=== PATIENT | female | born 2000 | race Caucasian/White ===

== ENCOUNTER 2024-05-12 09:22 | Emergency (ER) | payer MEDICAID, SELFPAY ==
[2024-05-12 09:46] VITALS: BP 165/92; PULSE 54; RESP 17; TEMP 36.4; O2SAT 98; BMI 35.5
[2024-05-12] MEDS: ONDANSETRON ODT 4 MG TABRAP PO (10:21)
[2024-05-12 10:33] LABS: Collection Type, Urine Clean Catch
[2024-05-12 10:39] LABS: Basophils % (Auto) 0 % (0-2.5); Eosinophils % (Auto) 0 % (0-10); Hematocrit 44.5 % (36.0-46.0); Hemoglobin 15.5 g/dL (12.0-16.0); Immature Granulocytes % (Auto) 0 % (0-0); Immature Granulocytes Auto 0.05 Thou/mm3 (0.00-0.00); Lymphocytes # (Auto) 1.1 Thou/mm3 (1.0-4.8); Lymphocytes % (Auto) 7 % (10-50); Mean Corpuscular HGB Conc 34.8 g/dl (31.0-37.0); Mean Corpuscular Hemoglobin 28.5 pg (25.0-35.0); Mean Corpuscular Volume 82 fL (80-100); Monocytes # (Auto) 0.6 Thou/mm3 (0.0-0.8); Monocytes % (Auto) 3 % (0-12); Neutrophils # (Auto) 14.6 Thou/mm3 (1.8-7.7); Neutrophils % (Auto) 90 % (37-80); Nucleated Red Blood Cell % 0 /100 WBC (0); Platelet Count 349 Thou/mm3 (140-440); Red Blood Count 5.43 Miln/mm3 (4.00-5.20); White Blood Count 16.3 Thou/mm3 (3.6-11.0)
[2024-05-12 10:57] LABS: HCG Qualitative,Urine Negative
[2024-05-12 10:59] LABS: Alanine Aminotransferase 29 U/L (10-49); Albumin, Serum 4.8 gm/dL (3.5-5.0); Albumin/Globulin Ratio 1.5 (1.2-2.2); Alkaline Phosphatase 122 U/L (46-116); Anion Gap 9 (7-16); Aspartate Amino Transferase 20 U/L (0-34); BUN/Creatinine Ratio 15 Ratio (12-20); Bilirubin,Total 0.6 mg/dL (0.3-1.2); Blood Urea Nitrogen 12 mg/dL (9-23); Calcium 10.3 mg/dL (8.3-10.6); Calcium (Corrected) 10.3 mg/dL (8.5-10.1); Carbon Dioxide 24.2 mMol/L (20.0-31.0); Chloride 108 mMol/L (98-107); Creatinine (Component) 0.8 mg/dL (0.6-1.3); Estimated Creatinine Clearance 120.5 mL/min (>60); Globulin 3.2 gm/dL (2.3-3.5); Glucose 154 mg/dL (74-106); Lipase 29 U/L (12-53); Osmolality,Calculated 283 (275-295); Potassium 4.4 mMol/L (3.4-5.1); Sodium 141 mMol/L (136-145); eGFR > 60 See Note
[2024-05-12 11:00] LABS: Bilirubin,Urine Negative (Negative); Blood,Urine Negative (Negative); Clarity,Urine Clear (Clear/Hazy); Color,Urine Yellow (Lt Yel-Yel); Culture Indicated,Urine Not Indicated; Glucose, Urine Negative (Negative); Ketones,Urine 3+ (Negative); Leukocyte Esterase,Urine Negative (Negative); Nitrite,Urine Negative (Negative); Protein,Urine 1+ (Neg - Trace); RBC,Urine < 1 /hpf (0-3); Specific Gravity,Urine 1.033 (1.001-1.035); Squamous Epithelial Cell,Urine 3 /hpf (0-5); Urobilinogen,Urine Negative mg/dL (0.0-1.0); WBC,Urine 1 /hpf (0-5)
--- NOTE | 2024-05-12 11:02 | XR_ITS ---
Examination: CT abdomen with intravenous contrast CT pelvis with intravenous contrast 2-D coronal reconstructions 2-D sagittal reconstructions Date and time of exam:May 12, 2024 1155 hrs. Indications: Onset left-sided abdominal pain beginning 2:00 AM this morning. CTDI: vol (mGy) 11.9 DLP: (mGycm) 636 Technique: Multiple axial sections of the abdomen and pelvis have been obtained. 64 slice high-resolution scanner used. 3 mm axial sections have been obtained, post intravenous injection 60 cc [id number] 2-D sagittal, coronal reconstructions obtained. Low dose protocols were performed. One or more of the following dose reduction techniques were used; automated exposure control, adjustment of the mA and/or KV according to patient size, use of iterative reconstruction technique. Findings: No focal liver or splenic lesions Distended gallbladder No pancreatic mass or peripancreatic edema No renal or ureteral calculi, no hydronephrosis 10 mm fat-containing umbilical hernia Normal appendix No bowel obstruction No diverticulitis Anteverted uterus The entire colon shows mild wall thickening and hyperemia No adnexal mass Urinary bladder intact Impression: Distended gallbladder, consider gallbladder sonography follow-up No renal or ureteral calculi, no hydronephrosis Normal appendix No bowel obstruction diverticulitis or free air Mild diffuse nonspecific colitis pattern
[2024-05-12] MEDS: SODIUM CHLORIDE 0.9% 1000 ML 1,000 ML 999 ML IV (12:37)
[2024-05-12] MEDS: METOCLOPRAMIDE INJ 5 MG/ML VIAL 2 ML 10 MG IVP (12:37)
[2024-05-12 13:06] VITALS: BP 135/80; PULSE 69; RESP 16; TEMP 37.2; O2SAT 98
--- NOTE | 2024-05-12 13:13 | PD.EDABDPN ---
ED Abdominal Pain RME/HPI General Chief Complaint: Abdominal Pain Stated complaint: STOMACH PAIN Time seen by provider: 05/12/24 09:30 Arrival date/time: 05/12/24 09:22 24-year-old female presents the emergency department complains of nausea vomiting and diarrhea which began today patient reports no chest pain or shortness of breath Limitations: no limitations Related Data Previous Rx's ?Medication ?Instructions ?Recorded ibuprofen 600 mg tablet 600 mg PO Q6H #30 tabs 05/12/24 loperamide 2 mg capsule (Imodium 2 mg PO Q6H PRN loose stool #14 05/12/24 A-D) caps ondansetron 4 mg disintegrating 4 mg PO Q8H PRN nausea and 05/12/24 tablet vomiting #10 tabs Allergies Allergy/AdvReac Type Severity Reaction Status Date / Time Penicillins Allergy Hives Verified 05/12/24 09:25 Review of Systems Review of Systems Systems Reviewed: All systems reviewed, normal except as documented Constitutional Constitutional: Reports system reviewed and no additional complaints, except as documented, Denies fever(s) and Denies headache(s) Eyes Eyes: Reports system reviewed and no additional complaints, except as documented and Denies blurry vision ENT Ears, Nose, Mouth, and Throat: Reports system reviewed and no additional complaints, except as documented, Denies headache(s), Denies nasal congestion and Denies nasal discharge Cardiovascular Cardiovascular: Reports system reviewed and no additional complaints, except as documented, Denies chest pain and Denies dyspnea Respiratory Respiratory: Reports system reviewed and no additional complaints, except as documented, Denies chest congestion, Denies cough and Denies dyspnea Gastrointestinal Gastrointestinal: Reports system reviewed and no additional complaints, except as documented, Reports abdominal pain, Reports loose stools, Reports nausea and Reports vomiting Integumentary/Breasts Skin/Breast: Reports system reviewed and no additional complaints, except as documented and Denies rash Neurologic Neurologic: Reports system reviewed and no additional complaints, except as documented, Reports as per HPI and Denies headache(s) Past Medical History Past Medical History NEUROLOGIC: Negative Neurological Disorders CARDIAC: Negative Cardiac Disorders ED Exam General Limitations: Present no limitations General appearance: Present alert and in no apparent distress Head Head exam: Present atraumatic, normocephalic and normal inspection Eye Eye exam: Present normal appearance, PERRL and EOMI; Absent conjunctival injection ENT ENT exam: Present normal exam, normal oropharynx and mucous membranes moist Neck Neck exam: Present normal inspection, full ROM and trachea midline Chest Chest inspection: Present normal inspection and symmetric chest wall rise Respiratory Respiratory exam: Present normal lung sounds bilaterally; Absent respiratory distress Cardiovascular Cardiovascular exam: Present regular rate, normal rhythm and normal heart sounds Abdominal Exam Abdominal exam: Present soft and normal bowel sounds; Absent distention, tenderness, guarding, rebound, rigidity, Fortune's sign, Rovsing's sign or tenderness at McBurney's Point Abdominal tenderness: Present epigastrium, mild and moderate; Absent RUQ or RLQ Extremities Exam Extremities exam: Present normal inspection and full ROM Back Exam Back exam: Present normal inspection and full ROM Neurological Exam Neurological exam: Present alert, oriented X3 and CN II-XII intact Psychiatric Psychiatric exam: Present normal affect and normal mood Skin Skin exam: Present warm, dry, intact and normal color Course Quality Measures none Orders Category Date Time Status CT Screening NOW Care 05/12/24 11:03 Completed Insert IV NOW Care 05/12/24 11:[address] abdomen pelvis w con Stat Exams 05/12/24 11:02 Completed CBC Stat Lab 05/12/24 10:24 Completed Comprehensive Metabolic Panel Stat Lab 05/12/24 10:24 Completed HCG Qualitative,Urine Stat Lab 05/12/24 10:13 Completed Lipase Stat Lab 05/12/24 10:24 Completed UA, C/S IF [Urinalysis, C/S if Indicated] Stat Lab 05/12/24 10:13 Completed Metoclopramide Inj [Reglan Inj] Med 05/12/24 12:28 Discontinued 10 mg IVP X1 ONE Ondansetron Odt [Zofran Odt] Med 05/12/24 09:51 Discontinued 4 mg PO X1 ONE Sodium Chloride 0.9% 1000 ml [Ns] 1,000 ml Med 05/12/24 11:03 Discontinued IV 999 mls/hr Vital Signs Vital signs: Vital Signs Temperature 97.5 F 05/12/24 09:46 Pulse Rate 54 L 05/12/24 09:46 Respiratory Rate 17 05/12/24 09:46 Blood Pressure 165/92 H 05/12/24 09:46 Pulse Oximetry (%) 98 05/12/24 09:46 Oxygen Delivery Method Room Air 05/12/24 09:46 O2 saturation 98% room air within normal limits Abdominal Pain MDM MDM Narrative MDM Narrative:: 24-year-old female presents the emergency department complains of nausea vomiting and diarrhea which began today patient reports no chest pain or shortness of breath On exam patient well-appearing patient is not appear ill or toxic in no acute distress Lab work obtained patient does have leukocytosis CT scan obtained no acute emergent findings noted Patient was medicated here and given IV fluids Time reevaluation patient reports feeling significantly better Patient discharged home in no distress to follow-up with primary care doctor in the next 24 to 48 hours and for any worsening symptoms to return to the ER immediately Patient data External records reviewed:: [facility] previous records Clinical information provided by:: patient Social determinants that could affect healthcare access:: none Patient has the following chronic illnesses:: None How is presenting disease/condition affected by chronic disease/condition?: no chronic disease Evaluation data The following diagnostics were reviewed and interpreted by me:: lab results and radiology exam(s) Lab and/or radiology exams considered but not ordered:: Labs and radiology obtained Interpretation Summary: By me Medications / Prescriptions Medications or Prescriptions considered but not ordered:: Given Medication administrations:: Medication Administration History Discontinued Medications Sodium Chloride (Ns) 1,000 mls @ 999 mls/hr IV .Q1H1M ONE Stop: 05/12/24 12:03 Last Admin: 05/12/24 12:37 Dose: 999 mls/hr Documented By: ARF Metoclopramide HCl (Metoclopramide Inj 5 Mg/Ml Vial 2 Ml) 10 mg IVP X1 ONE; Protocol Stop: 05/12/24 12:29 Last Admin: 05/12/24 12:37 Dose: 10 mg Documented By: ARF Ondansetron HCl (Ondansetron Odt 4 Mg Tabrap) 4 mg PO X1 ONE; Protocol Stop: 05/12/24 09:52 Last Admin: 05/12/24 10:21 Dose: 4 mg Documented By: TM Given Consultations Consultation(s) initiated? (list below): No Diagnosis Differential diagnosis abdominal pain: abdominal pain, acute appendicitis, constipation, diverticulitis and pancreatitis Most likely diagnosis given after review of the tests above:: Abdominal pain Admission Indicated Admission indicated?: not indicated Admission Request Was there a request for admission?: No Disposition Plan Disposition Plan: Discharge Discharge Attestation Discharge Attestation: The patient and all family members were given an opportunity to ask questions and understood the discharge instructions. Discharge instructions specifically effects, indications for sooner follow up or return to the emergency department, and the expected course of current diagnosis. Patient condition: Stable Discharge Plan Plan Patient Disposition: HOME (Self Care) Disposition Comment: stable Prescriptions/Referrals Prescriptions/Med Rec: New loperamide [Imodium A-D] 2 mg capsule 2 mg PO Q6H PRN (Reason: loose stool) Qty: 14 0RF ibuprofen 600 mg tablet 600 mg PO Q6H Qty: 30 0RF ondansetron 4 mg tablet,disintegrating 4 mg PO Q8H PRN (Reason: nausea and vomiting) Qty: 10 0RF Referrals: No Primary/Family,Physician [Primary Care Provider] - 05/14/24 Problem List Clinical Impression: Colitis Patient/Caregiver Discharge Instructions Education Materials: How the Colon Works Additional Instructions: Please follow up with your primary care doctor in the next 24-48hrs for any worsening symptoms return here immediately Print Language: Monegasque Stand Alone Forms: Kenyetta Award Info., Work/School Release, Patient Portal Info Letter TERESA/RALEIGH Supervising Physician TERESA/RALEIGH Supervising Physician: Dr. Foote
== END 2024-05-12 13:29 | disposition home or self-care (01) ==
PROVIDERS: Nurse Practitioner Primary Care; Emergency Provider Emergency Medicine
DX: K52.9 Noninfective gastroenteritis and colitis, unspecified (principal)
CPT/HCPCS: 36415; 74177; 80053; 81001; 81025; 83690; 85025; 99285; A4649; J2765; J7030; Q0162; Q9967

== ENCOUNTER 2024-08-25 16:05 | Inpatient (IN) | payer SELFPAY ==
--- NOTE | 2024-08-25 | XR_ITS ---
MRI abdomen, without contrast. MRCP Date and time of exam: August 25, 2024 1835 hrs. Indications: Elevated total bilirubin on laboratory examination today Technique: Multiple axial and coronal images of the abdomen have been obtained with the Siemens 1.5T MRI scanner. Images obtained included T1 weighted transverse images, T2-weighted transverse images, T2-weighted transverse images fat-suppressed, T2 weighted haste fat suppressed transverse images, T1 weighted images, in and out of phase images, T2-weighted coronal images, breath hold, T2 weighted haze coronal images as well as T2 weighted coronal thick slab images, MRCP. Findings: Cholelithiasis No definite gallbladder wall thickening No common hepatic or common bile duct stones Significant edema surrounding the pancreas Spleen is not enlarged No hydronephrosis Impression: Cholelithiasis, negative for cholecystitis Acute pancreatitis, no pseudocyst
[2024-08-25 16:07] VITALS: BMI 30.9
[2024-08-25 16:17] VITALS: BP 143/91; PULSE 78; RESP 18; TEMP 36.9; O2SAT 97
--- NOTE | 2024-08-25 16:24 | XR_ITS ---
Examination: Abdomen sonogram, Limited Date and time of exam: August 25, 2024 1650 hrs. Indications: Epigastric pain beginning 3 days ago Technique: Real-time gutierrez scale transabdominal sonographic images of the upper abdomen obtained. Findings: Cholelithiasis, negative for cholecystitis Common bile duct reports CM Pancreatic head 2.2 cm Liver 15 cm fatty infiltration Normal hepatopedal portal venous flow Patent IVC Impression: Cholelithiasis, negative for cholecystitis
--- NOTE | 2024-08-25 16:24 | PD.EDRME ---
Rapid Medical Screening Exam RME Arrival date/time: 08/25/24 16:05 24-year-old female presents emergency department complains of nausea vomiting abdominal pain Chief Complaint: Abdominal Pain Time Seen by Provider: 08/25/24 16:17 Vital signs: Vital Signs Temperature 98.5 F 08/25/24 16:17 Pulse Rate 78 08/25/24 16:17 Respiratory Rate 18 08/25/24 16:17 Blood Pressure 143/91 H 08/25/24 16:17 Pulse Oximetry (%) 97 08/25/24 16:17 Oxygen Delivery Method Room Air 08/25/24 16:17
[2024-08-25] MEDS: METOCLOPRAMIDE 5 MG TABLET 10 MG PO (17:14)
[2024-08-25 17:16] LABS: Basophils % (Auto) 0 % (0-2.5); Eosinophils % (Auto) 0 % (0-10); Hematocrit 49.2 % (36.0-46.0); Hemoglobin 16.9 g/dL (12.0-16.0); Immature Granulocytes % (Auto) 0 % (0-0); Immature Granulocytes Auto 0.05 Thou/mm3 (0.00-0.00); Lymphocytes # (Auto) 1.1 Thou/mm3 (1.0-4.8); Lymphocytes % (Auto) 8 % (10-50); Mean Corpuscular HGB Conc 34.3 g/dl (31.0-37.0); Mean Corpuscular Hemoglobin 28.4 pg (25.0-35.0); Mean Corpuscular Volume 83 fL (80-100); Monocytes # (Auto) 0.5 Thou/mm3 (0.0-0.8); Monocytes % (Auto) 3 % (0-12); Neutrophils # (Auto) 13.1 Thou/mm3 (1.8-7.7); Neutrophils % (Auto) 89 % (37-80); Nucleated Red Blood Cell % 0 /100 WBC (0); Platelet Count 331 Thou/mm3 (140-440); RDW Standard Deviation 40.7 fL (36.4-46.3); Red Blood Count 5.96 Miln/mm3 (4.00-5.20); White Blood Count 14.8 Thou/mm3 (3.6-11.0)
[2024-08-25 17:32] LABS: Collection Type, Urine Clean Catch
[2024-08-25 17:42] LABS: Bacteria,Urine 3+; Bilirubin,Urine Negative (Negative); Blood,Urine Negative (Negative); Clarity,Urine Turbid (Clear/Hazy); Color,Urine Yellow (Lt Yel-Yel); Glucose, Urine Negative (Negative); HCG Qualitative,Urine Negative; Ketones,Urine Negative (Negative); Leukocyte Esterase,Urine Positive (Negative); Nitrite,Urine Negative (Negative); Protein,Urine Trace (Neg - Trace); RBC,Urine 4 /hpf (0-3); Squamous Epithelial Cell,Urine 4 /hpf (0-5); Urobilinogen,Urine Negative mg/dL (0.0-1.0); WBC,Urine 3 /hpf (0-5)
[2024-08-25 17:43] LABS: Culture Indicated,Urine Yes
[2024-08-25 17:52] LABS: Alanine Aminotransferase 596 U/L (10-49); Albumin, Serum 4.9 gm/dL (3.5-5.0); Albumin/Globulin Ratio 1.5 (1.2-2.2); Alkaline Phosphatase 200 U/L (46-116); Anion Gap 10 (7-16); Aspartate Amino Transferase 665 U/L (0-34); BUN/Creatinine Ratio 9 Ratio (12-20); Bilirubin,Total 1.3 mg/dL (0.3-1.2); Blood Urea Nitrogen 7 mg/dL (9-23); Calcium 10.5 mg/dL (8.3-10.6); Calcium (Corrected) 10.5 mg/dL (8.5-10.1); Carbon Dioxide 25.1 mMol/L (20.0-31.0); Chloride 106 mMol/L (98-107); Creatinine (Component) 0.8 mg/dL (0.6-1.3); Estimated Creatinine Clearance 112.1 mL/min (>60); Globulin 3.3 gm/dL (2.3-3.5); Glucose 130 mg/dL (74-106); Lipase 1634 U/L (12-53); Osmolality,Calculated 281 (275-295); Potassium 4.8 mMol/L (3.4-5.1); Sodium 141 mMol/L (136-145); Total Protein 8.2 gm/dL (5.7-8.2); eGFR > 60 See Note
--- NOTE | 2024-08-25 18:25 | EDNOTE_ITS ---
ED Abdominal Pain RME/HPI General Chief Complaint: Abdominal Pain Stated complaint: Epigastric pain with NV since Time seen by provider: 08/25/24 16:17 Arrival date/time: 08/25/24 16:05 RME / HPI RME / HPI narrative: 24-year-old female with no significant medical history, came in for evaluation regarding upper abdominal pain. This been ongoing for the last 2 days, severity moderate associated with vomiting. Denies any fever denies any diarrhea denies any constipation denies any other complaints. Patient is not alcoholic. Related Data Previous Rx's ?Medication ?Instructions ?Recorded ibuprofen 600 mg tablet 600 mg PO Q6H #30 tabs 05/12 loperamide 2 mg capsule (Imodium 2 mg PO Q6H PRN loose stool #14 05/12/24 A-D) caps ondansetron 4 mg disintegrating 4 mg PO Q8H PRN nausea and 05/12/24 tablet vomiting #10 tabs Allergies Allergy/AdvReac Type Severity Reaction Status Date / Time Penicillins Allergy Hives Verified 05/12/24 09:25 Review of Systems Review of Systems Narrative Review of Systems: Review of system reviewed and within normal limits except mentioned in HPI ED Exam Narrative Physical exam: VITAL SIGNS: Reviewed. GENERAL APPEARANCE: Alert and interactive, follows commands, no acute distress, HEAD AND FACE: Non-traumatic. ENT: PERRL, pink conjunctivitis, eyelid no trauma, Mucous membrane moist. NECK: Supple, nontender, no nuchal rigidity. CHEST: No tenderness, no crepitus, no paradoxical movement, no retractions. LUNGS: Clear, well ventilated, symmetric, no rales, no wheezing, no ronchi, no stridor, good breath sounds bilaterally. HEART: Regular rate, regular rhythm, no murmur, no gallops. ABDOMEN: Soft, positive bowel sounds, nondistended, no guarding, upper abdominal tenderness, no rebound, no masses, RECTAL: Deferred. GENITAL: Deferred. NEUROLOGICAL: Gross motor function intact sensory function intact, Appropriate for age. MUSCULOSKELETAL: low back nontender, full range of motion. EXTREMITIES: Nontender, full range of motion. SKIN: Color pink, dry, no rash, no lacerations, no abrasions, no contusions. LYMPHATICS: Deferred. Course Quality Measures none Orders Category Date Time Status COVID-19 Screening Questionnaire NOW Care 08/25/24 21:33 Active Decision to Admit X1 Care 08/25/24 21:33 Active MRI Screening NOW Care 08/25/24 18:14 Active MR MRCP Stat Exams 08/25/24 00:00 Completed US gall bladder Stat Exams 08/25/24 16:24 Completed Blood Culture (Lab) Stat Lab 08/25/24 19:09 Received CBC Stat Lab 08/25/24 16:49 Completed Comprehensive Metabolic Panel Stat Lab 08/25/24 16:49 Completed HCG Qualitative,Urine Stat Lab 08/25/24 17:10 Completed Lactate (Lactic Acid) Stat Lab 08/25/24 19:09 Results Lipase Stat Lab 08/25/24 16:49 Completed Lipid Panel Stat Lab 08/25/24 19:09 Results Procalcitonin Stat Lab 08/25/24 19:09 Results UA, C/S IF [Urinalysis, C/S if Indicated] Stat Lab 08/25/24 17:10 Completed Urine Culture Stat Lab 08/25/24 17:10 Received Cefoxitin [Mefoxin] 2 gm Med 08/25/24 18:24 Discontinued SODIUM CHLORIDE 0.9% (Popper) [Ns 0.9% (P)] 50 ml IV X1 Metoclopramide [Reglan] Med 08/25/24 16:24 Discontinued 10 mg PO X1 ONE Morphine Inj Med 08/25/24 18:24 Discontinued 4 mg IVP X1 ONE Ondansetron Inj [Zofran Inj] Med 08/25/24 18:24 Discontinued 4 mg IV X1 ONE Sodium Chloride 0.9% 1000 ml [Ns] 1,000 ml Med 08/25/24 18:24 Discontinued IV 999 mls/hr Sodium Chloride 0.9% 1000 ml [Ns] 1,000 ml Med 08/25/24 19:53 Discontinued IV 999 mls/hr Vital Signs Vital signs: Vital Signs Temperature 98.5 F 08/25/24 16:17 Pulse Rate 78 08/25/24 16:17 Respiratory Rate 18 08/25/24 16:17 Blood Pressure 143/91 H 08/25/24 16:17 Pulse Oximetry (%) 97 08/25/24 16:17 Oxygen Delivery Method Room Air 08/25/24 16:17 Abdominal Pain MDM MDM Narrative MDM Narrative:: 24-year-old female with no significant medical history, came in for evaluation regarding upper abdominal pain. This been ongoing for the last 2 days, severity moderate associated with vomiting. Denies any fever denies any diarrhea denies any constipation denies any other complaints. Patient is not alcoholic. Patient's workup is significant for acute gallstone pancreatitis, with WBC count of 14.8. Patient's lipase today was noted to be 1634. Patient's total bili was also noted to be slightly elevated 1.3, AST of 665, ALT of 596, alkaline phos of 200. Lactic acid was noted to be 4.8. MRCP showed acute pancreatitis, cholelithiasis with no sign of acute cholecystitis, common bile duct is normal no stones noted. Patient received IV fluids IV cefoxitin, morphine, Zofran. Case discussed with hospitalist who admitted the patient. Patient data External records reviewed:: None Clinical information provided by:: patient Social determinants that could affect healthcare access:: none Patient has the following chronic illnesses:: None How is presenting disease/condition affected by chronic disease/condition?: no chronic disease Evaluation data The following diagnostics were reviewed and interpreted by me:: lab results and radiology exam(s) Lab and/or radiology exams considered but not ordered:: None Interpretation Summary: See results in [facility] Medications / Prescriptions Medications or Prescriptions considered but not ordered:: None Medication administrations:: Medication Administration History Discontinued Medications Sodium Chloride (Ns) 1,000 mls @ 999 mls/hr IV .Q1H1M ONE Stop: 08/25/24 19:24 Last Infusion: 08/25/24 21:12 Dose: Infused Documented By: Admin: 08/25/24 19:29 Dose: 999 mls/hr Documented By: TRELL Cefoxitin Sodium 2 gm/ Sodium (Chloride) 50 mls @ 100 mls/hr IV X1 ONE Stop: 08/25/24 18:53 Last Infusion: 08/25/24 20:27 Dose: Infused Documented By: Admin: 08/25/24 19:28 Dose: 100 mls/hr Documented By: TRELL Sodium Chloride (Ns) 1,000 mls @ 999 mls/hr IV .Q1H1M ONE Stop: 08/25/24 20:53 Last Admin: 08/25/24 21:31 Dose: 999 mls/hr Documented By: TRELL Metoclopramide HCl (Metoclopramide 5 Mg Tablet) 10 mg PO X1 ONE Stop: 08/25/24 16:25 Last Admin: 08/25/24 17:14 Dose: 10 mg Documented By: Morphine Sulfate (Morphine Sulf Inj 10 Mg/Ml Vial) 4 mg IVP X1 ONE Stop: 08/25/24 18:25 Last Admin: 08/25/24 19:28 Dose: 4 mg Documented By: SF Ondansetron HCl (Ondansetron Inj 2 Mg/Ml Inj 2 Ml) 4 mg IV X1 ONE; Protocol Stop: 08/25/24 18:25 Last Admin: 08/25/24 19:27 Dose: 4 mg Documented By: RTELL Zofran morphine Reglan IV fluids cefoxitin Consultations Consultation(s) initiated? (list below): No Diagnosis Differential diagnosis abdominal pain: abdominal pain and small bowel obstruction Most likely diagnosis given after review of the tests above:: Acute gallstone pancreatitis Admission Indicated Admission indicated?: indicated Admission Request Was there a request for admission?: Yes Admission Attestation Admission request attestation: Discussed case with [Dr Ambrose ] from Hospitalist service regarding admission. Discussed patients ED course, exam findings, labs, and radiology results. The Hospitalist [agrees] to accept the patient for admission. Disposition Plan Disposition Plan: Admit Discharge Plan Plan Patient Disposition: Admit Acute Care w/in Hospital Prescriptions/Referrals Prescriptions/Med Rec: No Action loperamide [Imodium A-D] 2 mg capsule 2 mg PO Q6H PRN (Reason: loose stool) Qty: 14 0RF ibuprofen 600 mg tablet 600 mg PO Q6H Qty: 30 0RF ondansetron 4 mg tablet,disintegrating 4 mg PO Q8H PRN (Reason: nausea and vomiting) Qty: 10 0RF Referrals: No Primary/Family,Physician [Primary Care Provider] - In 1 week Problem List Clinical Impression: Acute gallstone pancreatitis Patient/Caregiver Discharge Instructions Print Language: Wolof Stand Alone Forms: Kenyetta Award Info., Patient Portal Info Letter
--- NOTE | 2024-08-25 18:30 | PC.NURSE ---
PT TAKEN TO MRI UNABLE TO START MEDS OR IV
--- NOTE | 2024-08-25 18:50 | PRELIM_ITS ---
Gallbladder ultrasound. August 25, 2024 at 1650 hours Clinical history: Abdominal pain. Comparison: No prior study is available for comparison. Findings: The visualized liver is mildly increased in echogenicity without mass or ductal dilatation. The main portal vein is patent and demonstrates hepatopetal flow. Multiple calculi are noted within the gallbladder, without evidence of gallbladder wall thickening or pericholecystic fluid. The common duct is normal in caliber at 4.2 mm. The pancreas is unremarkable to the extent visualized. The inferior vena cava is unremarkable to the extent visualized. Impression: Cholelithiasis without evidence of acute cholecystitis. No sonographic evidence of biliary obstruction. Mild fatty infiltration of the liver. Report Electronically Signed By: Drew Greene 08/25/2024 6:49:46 PM [EST]
[2024-08-25] MEDS: ONDANSETRON INJ 2 MG/ML INJ 2 ML 4 MG IV (19:27)
[2024-08-25 19:28] VITALS: BP 140/81; PULSE 70; RESP 19; TEMP 36.9; O2SAT 98
[2024-08-25 19:28] LABS: Lactate (Lactic Acid) 4.8 mMol/L (0.4-2.0)
[2024-08-25] MEDS: CEFOXITIN 2 GM in SODIUM CHLORIDE 0.9% (Popper) 50 ML IV (19:28)
[2024-08-25] MEDS: MORPHINE SULF INJ 10 MG/ML VIAL 4 MG IVP (19:28)
[2024-08-25] MEDS: SODIUM CHLORIDE 0.9% 1000 ML 1,000 ML 999 ML IV ×2 (19:29→21:31)
--- NOTE | 2024-08-25 20:18 | PRELIM_ITS ---
MR Cholangiopancreatography without intravenous contrast. August 25, 2024 1835 hours Clinical History: Right upper quadrant pain, elevated total bilirubin. Comparison: Correlated with gallbladder ultrasound performed today. Findings: The evaluation is limited by respiratory motion. The pancreas is edematous with peripancreatic fat stranding and fluid. The pancreatic duct is normal in caliber, measuring 2 mm. No evidence of loculated peripancreatic fluid collection at this time. The gallbladder is contracted and demonstrates multiple calculi without evidence of gallbladder wall thickening or pericholecystic fluid/fat stranding. No evidence of intrahepatic biliary duct dilatation. The common bile duct is normal in caliber, measuring 4 mm. There is mild fatty infiltration of the liver. The spleen, adrenals and kidneys are unremarkable. No evidence of bowel obstruction to the extent visualized. Small amount of fluid is seen in the upper and mid abdomen. No evidence of abdominal aortic aneurysm. The osseous structures are unremarkable. Impression: Findings suggestive of acute pancreatitis. No evidence of peripancreatic fluid collection at this time. Cholelithiasis without evidence of acute cholecystitis. No biliary duct dilatation or obstruction. Other findings as described above. Report Electronically Signed By: Drew Greene 08/25/2024 8:17:21 PM [EST]
[2024-08-25 22:10] LABS: Cardiac Risk Estimate 3.1 RATIO (3.7-5.6); Cholesterol 154 mg/dL (132-200); HDL Cholesterol 49 mg/dL (40-60); LDL Cholesterol,Calculated 88 mg/dL (0-130); Triglycerides 83 mg/dL (30-150)
--- NOTE | 2024-08-25 22:13 | ESHP_ITS ---
Documentation for date of: 08/25/24 HPI History of Present Illness Chief complaint: Abdominal Pain History of present illness: HPI: Patient is a 24-year-old female with no significant past medical history presenting today with a chief complaint of abdominal pain for the past 3 days. Patient said that abdominal pain for started 3 days ago shortly after eating chicken, green beans and salsa at home. She described the pain as epigastric, 9 on 10 in severity, no radiation, associated with vomiting, diarrhea and nausea, initially episodic but progressed to being constant today. She also endorsed mild relief of the pain by using Tylenol. Denied any fever chest pain, shortness of breath, headache dysuria, increased frequency of urination and LUTS. Her vomiting was initially 1-2 episodes per day of food contents. Today however she said she was vomiting nonstop since she woke up until about 2/3 PM in the afternoon. Described as mostly liquids, denied any bile, hematemesis or coffee- ground emesis. Of note patient had colitis last year Thanks and presented to the emergency room. She was not admitted and discharged on ibuprofen as needed, ondansetron and loperamide. ED course: BP 140/80, pulse 70, RR 19, temp 98.5 F, SpO2 98% on room air. Labs significant for WBC 14.8, Hb 16.9, HCT 49.2, LA 4.8, T. bili 1.3, AST 665, ALT 596, lipase 1634. Urinalysis showed leukocyte esterase positive and 3+ bacteria. MRCP showed cholelithiasis, negative for cholecystitis. Acute pancreatitis with no pseudocyst or necrosis. Gallbladder ultrasound revealed cholelithiasis, fatty liver. Negative for cholecystitis. In the ED patient received metoclopramide 10 Mg p.o. x 1, ondansetron 4 Mg IV x 1, morphine 4 Mg IV x 1, cefoxitin 2 g IV x 1 and normal saline 2L IV fluid bolus. Patient will be admitted to observation for treatment and management of acute pancreatitis. Review of Systems Review of Systems Narrative Review of Systems: GENERAL: Denies fever/chills or diaphoresis. HEENT: Denies headaches or visual changes. Denies discharge. Neuro: Denies unusual weakness or difficulty speaking. CARDIO: Denies chest pain or palpitations. PULM: Denies SOB, coughing or wheezing. GI: As above URO: Denies burning/itching/pain/urinary changes. [employer]: Denies menstrual changes, hot flashes. MSK/EXT/SKIN: Denies joint/skeletal/muscle pain, issues/changes in upper or lower extremities, itchiness, or superficial pain. PSYCH: Cooperative, pleasant mood & affect. The rest of the review of systems is otherwise negative. Past Medical History Past Medical History Comments PMH COMMENT: Past medical history: Right eye strabismus Obesity Medication list: Tylenol 650 Mg p.o. as needed for pain Past surgical history: Latrell procedure for thyroglossal duct cyst at [facility] ? 2001 Allergies: Penicillin - Hives Social history: Occupational History: Unemployed Education Level: Graduated High School Marital Status: Single. No kids Tobacco use: Denies ETHO use: Denies Illicit drug use: Denies Social History Note: lives with Mother Family History: Grandmother - DM Exam Vital Signs Temp Pulse Resp BP Pulse Ox O2 Del Method 98.5 F 70 19 140/81 H 98 Room Air 08/25/24 19:28 08/25/24 19:28 08/25/24 19:28 08/25/24 19:28 08/25/24 19:28 08/25/24 19:28 Narrative Exam Constitutional Alert, oriented x 3 and comfortable. Young female HEENT Vision grossly intact. Patent nares. Trachea midline Respiratory Chest normal on inspection and clear auscultation bilaterally Cardiovascular S1 and S2 audible, RRR. No murmurs carotid bruit. No gross JVD. Abdominal Soft and tender to light palpation of epigastrium. BS + Genitourinary No bladder tenderness, no flank pain. Normal to palpation Musculoskeletal Extremities tone within normal limits. No LE edema. Neurological CN II - XII grossly intact. Extremity motor and sensation grossly intact. Skin Warm, dry and intact. No apparent lesions. Psychiatric Patient has good affect, is cooperativeB Results: Labs 08/25/24 16:49 08/25/24 16:49 Labs: Short CBC 08/25/24 Range/Units 16:49 WBC 14.8 H (3.6-11.0) Thou/mm3 Hgb 16.9 H (12.0-16.0) g/dL Hct 49.2 H (36.0-46.0) % Plt Count 331 (140-440) Thou/mm3 BMP 08/25/24 16:49 Sodium 141 Potassium 4.8 Chloride 106 Carbon Dioxide 25.1 BUN 7 L Creatinine 0.8 Glucose 130 H Calcium 10.5 Liver Function 08/25/24 Range/Units 16:49 Total Bilirubin 1.3 H (0.3-1.2) mg/dL AST 665 H* (0-34) U/L ALT 596 H* (10-49) U/L Alkaline Phosphatase 200 H (46-116) U/L Albumin 4.9 (3.5-5.0) gm/dL Urine 08/25/24 Range/Units 17:10 Urine Color Yellow (Lt Yel-Yel) Urine Clarity Turbid A (Clear/Hazy) Urine pH 6.0 (5.0-7.0) Ur Specific [place] 1.020 (1.001-1.035) Urine Protein Trace (Neg - Trace) Urine Glucose (UA) Negative (Negative) Quality Measures Quality Measures none Medications Home Medications and Allergies Allergies Allergy/AdvReac Type Severity Reaction Status Date / Time Penicillins Allergy Hives Verified 05/12/24 09:25 Visit Medications Acetaminophen (Acetaminophen 325 Mg Tablet) 650 mg PO Q6H PRN PRN Reason: Fever >100 or pain Stop: 09/24/24 22:03 Albuterol/Ipratropium (Albuterol/Ipratropium (Duoneb) Rt Tanya 3 Ml Nebu) 3 ml INH Q4HR PRN PRN Reason: SHORTNESS OF BREATH OR WHEEZE Stop: 09/24/24 22:03 Enoxaparin Sodium (Enoxaparin Sod Inj 40 Mg/0.4 Ml Syringe) 40 mg SC QDAY ERINN Stop: 09/09/24 08:59 Sodium Chloride (Ns) 500 mls @ 999 mls/hr IV .Q31M ONE Stop: 08/25/24 22:42 Ketorolac Tromethamine (Ketorolac Inj 30 Mg/Ml Vial) 30 mg IVP Q6HR PRN PRN Reason: PAIN SCALE 4-10(Mod-Sev Stop: 08/30/24 22:05 Morphine Sulfate (Morphine Sulf Inj 10 Mg/Ml Vial) 2 mg IVP Q4HR PRN PRN Reason: BREAKTHROUGH PAIN Stop: 08/30/24 22:05 Ondansetron HCl (Ondansetron Inj 2 Mg/Ml Inj 2 Ml) 4 mg IV Q6H PRN; Protocol PRN Reason: NAUSEA OR VOMITING Stop: 09/24/24 22:05 Pantoprazole Sodium (Pantoprazole Inj 40 Mg Vial) 40 mg IVP QDAY [facility] Stop: 09/24/24 22:14 Discontinued Medications Sodium Chloride (Ns) 1,000 mls @ 999 mls/hr IV .Q1H1M ONE Stop: 08/25/24 19:24 Last Infusion: 08/25/24 21:12 Dose: Infused Cefoxitin Sodium 2 gm/ Sodium (Chloride) 50 mls @ 100 mls/hr IV X1 ONE Stop: 08/25/24 18:53 Last Infusion: 08/25/24 20:27 Dose: Infused Sodium Chloride (Ns) 1,000 mls @ 999 mls/hr IV .Q1H1M ONE Stop: 08/25/24 20:53 Last Admin: 08/25/24 21:31 Dose: 999 mls/hr Metoclopramide HCl (Metoclopramide 5 Mg Tablet) 10 mg PO X1 ONE Stop: 08/25/24 16:25 Last Admin: 08/25/24 17:14 Dose: 10 mg Morphine Sulfate (Morphine Sulf Inj 10 Mg/Ml Vial) 4 mg IVP X1 ONE Stop: 08/25/24 18:25 Last Admin: 08/25/24 19:28 Dose: 4 mg Ondansetron HCl (Ondansetron Inj 2 Mg/Ml Inj 2 Ml) 4 mg IV X1 ONE; Protocol Stop: 08/25/24 18:25 Last Admin: 08/25/24 19:27 Dose: 4 mg Pantoprazole Sodium (Pantoprazole Inj 40 Mg Vial) 40 mg IVP QDAY [facility] Stop: 09/25/24 08:59 Assessment & Plan Plan Patient is a 24-year-old female with no significant past medical history presenting today with a chief complaint of abdominal pain for the past 3 days. Patient will be admitted to observation for treatment and management of acute pancreatitis. Acute pancreatitis Cholelithiasis Cholecystitis ruled out Patient presented with worsening epigastric abdominal pain associated with intractable vomiting. On exam patient is tender to palpation in the epigastrium. Non-tender to palpation in right upper quadrant. Etiology: Gallstone, ethanol, hyperlipidemia, hep B, HIV MRCP significant for acute pancreatitis without pseudocyst or necrosis Gallbladder ultrasound revealed cholelithiasis, negative for cholecystitis. Fatty liver Lipase?1634 [place] criteria 3/3. [Abdominal pain, lipase 1634 and MRCP shows pancreatitis] BISAP score; 0, <1% mortality [place]?Imrie Pancreatitis score ; 0. Low risk for severe pancreatitis Plan: ? Clear liquid diet as tolerated - Counseled on low-fat diet ? LDH and lipid panel ordered - Hepatitis panel, HIV 1 & 2 rapid ordered - Normal saline 500 cc IV fluid bolus ? Maintenance lactated Ringer's IV fluids at 150 cc/h ? Ketorolac 30 Mg IV Q6 hourly for pain 4?10 ? Morphine 2 Mg IV every 4 hourly for breakthrough pain ? No need for antibiotics as no sign of necrosis on MRCP and negative for cholecystitis. - Outpatient surgical follow-up for cholelithiasis Intractable nausea and vomiting Lactic acidosis Leukocytosis Patient had constant vomiting today with last episode around 2/3 PM. LA 4.8. WBC 14.8 Elevated lactic acid and white cell most likely secondary to persistent vomiting. Plan: ? Trend lactic acid every 6 hourly ? Maintenance IV fluids ? Ondansetron 4 Mg IV Q6 hourly as needed for nausea/vomiting Transaminitis Elevated T. bili Metabolic dysfunction associated steatotic liver disease Obesity Class 1 On admission T. bili 1.3, AST 665, ALT 596, ALP 200. Gallbladder ultrasound revealed cholelithiasis, negative for cholecystitis. Fatty liver BMI 30.9 Plan: - Monitor CMP ? Counseled patient on low-fat diet - Lifestyle modification for fatty liver Asymptomatic bacteriuria Patient denies any dysuria, increased frequency or LUTS Urinalysis 3+ bacteria, leukocyte esterase positive. Plan: ? No need for antibiotics Health maintenance: Disposition: IV fluids, pain management. Anticipate discharge within next 24 to 48 hours Diet: Clear liquid Lines: pIVs GI Prophylaxis: Pantoprazole Thrombo Prophylaxis: Enoxaparin Code status: FULL CODE Plan of care discussed with Attending Dr. Jolanta Alejandra MD PGY 1 Attending Provider Attestation/Addendum 24-year-old female with no previous medical history who presented with abdominal pain found to have acute pancreatitis with cholelithiasis. In addition, patient also noted to have transaminitis with elevated T. bili thus MRCP was obtained however no evidence of any CBD stone. As of now, plan to admit the patient and start aggressive IV fluid resuscitation, clear liquid diet and monitor closely. Once acute pancreatitis improves then patient will need surgery consultation. Of note, when the patient presented patient was noted to have a lactic acidosis of 4.8 that downtrended to 3.9 with IV fluid resuscitation.I reviewed above note and agree with findings and plans. I have also personally examined the patient with medicine team and went over assessment and plan with medical team including internet project manager and resident physician.
[2024-08-25 22:15] LABS: Reflex Lactate? Y
[2024-08-25 22:16] VITALS: BP 130/74; PULSE 87; RESP 18; TEMP 36.9; O2SAT 96
[2024-08-25 22:54] LABS: Lactic Acid, 3 HR 3.9 mMol/L (0.4-2.0)
[2024-08-25 23:18] LABS: LDH (Lactate Dehydrogenase) 286 U/L (120-246)
[2024-08-25] MEDS: SODIUM CHLORIDE 0.9% 500 ML 500 ML 999 ML IV (23:50)
[2024-08-25] MEDS: PANTOPRAZOLE INJ 40 MG VIAL IVP (23:51)
[2024-08-25 23:52] VITALS: PULSE 98; RESP 20; RESP 97
[2024-08-25 23:54] VITALS: PULSE 98; RESP 20; O2SAT 97
[2024-08-26] VITALS (19 sets, daily range): BP systolic 111–150; BP diastolic 68–95; PULSE 16–103; RESP 15–181; TEMP 36.2–37; O2SAT 94–100; BMI 34.0
[2024-08-26 07:23] LABS: Basophils % (Auto) 0 % (0-2.5); Eosinophils # (Auto) 0.1 Thou/mm3 (0.0-0.5); Eosinophils % (Auto) 1 % (0-10); Hematocrit 39.7 % (36.0-46.0); Hemoglobin 13.5 g/dL (12.0-16.0); Immature Granulocytes % (Auto) 0 % (0-0); Immature Granulocytes Auto 0.02 Thou/mm3 (0.00-0.00); Lymphocytes % (Auto) 18 % (10-50); Mean Corpuscular Hemoglobin 28.4 pg (25.0-35.0); Mean Corpuscular Volume 84 fL (80-100); Monocytes # (Auto) 0.9 Thou/mm3 (0.0-0.8); Monocytes % (Auto) 9 % (0-12); Neutrophils % (Auto) 73 % (37-80); Nucleated Red Blood Cell % 0 /100 WBC (0); Platelet Count 242 Thou/mm3 (140-440); RDW Standard Deviation 42.2 fL (36.4-46.3); Red Blood Count 4.75 Miln/mm3 (4.00-5.20); White Blood Count 10.9 Thou/mm3 (3.6-11.0)
[2024-08-26 07:46] LABS: Alanine Aminotransferase 325 U/L (10-49); Albumin, Serum 3.6 gm/dL (3.5-5.0); Albumin/Globulin Ratio 1.5 (1.2-2.2); Alkaline Phosphatase 142 U/L (46-116); Anion Gap 8 (7-16); Aspartate Amino Transferase 170 U/L (0-34); BUN/Creatinine Ratio 10 Ratio (12-20); Blood Urea Nitrogen 7 mg/dL (9-23); Calcium 8.7 mg/dL (8.3-10.6); Carbon Dioxide 23.3 mMol/L (20.0-31.0); Chloride 111 mMol/L (98-107); Creatinine (Component) 0.7 mg/dL (0.6-1.3); Estimated Creatinine Clearance 134.6 mL/min (>60); Globulin 2.4 gm/dL (2.3-3.5); Glucose 95 mg/dL (74-106); Osmolality,Calculated 281 (275-295); Potassium 3.9 mMol/L (3.4-5.1); Sodium 142 mMol/L (136-145); eGFR > 60 See Note
[2024-08-26 08:00] LABS: Glucose Estimated Average 94 mg/dL (80-131); Hemoglobin A1C 4.9 % Hgb (4.8-6.0)
[2024-08-26 08:49] LABS: HIV (1&2) Antibody Rapid Non-Reactive
[2024-08-26] MEDS: PANTOPRAZOLE INJ 40 MG VIAL IVP (09:09)
[2024-08-26] MEDS: ENOXAPARIN SOD INJ 40 MG/0.4 ML SYRINGE SC (09:10)
[2024-08-26] MEDS: RINGERS LACTATED 1000 ML 1,000 ML 150 ML IV (10:51)
--- NOTE | 2024-08-26 10:59 | PC.SS ---
Patient is alert/oriented. Patient was able to verify demographics. Patient resides with her mother in [place], [place]. Patient states she's independent with ADL's. Patient does not use any DME. Patient states she does not drive. Her mother provides transportation assistance to all appointments. Patient is listed as self pay. Patient confirmed she's had HPE before. She did not follow through with [employer] application at that time. Patient may not qualify for HPE again. Financial counselor will follow up with patient on Tuesday. Patient states she's had a history of anxiety. She's not on any medications currently. Patient states she has not seen a physician in years. No current PCP. Patient states her mother is her alt medical decision maker. Patient discharge plan is to return home. No further d/c needs.
--- NOTE | 2024-08-26 11:45 | ESPR_ITS ---
Documentation for date of: 08/26/24 Subjective Subjective Interval history: Patient seen today at the bedside fine awake, alert, oriented x 3. No overnight events reported. States improvement in abdominal pain and is willing to eat and advance diet. Vital signs stable at this time. Labs unremarkable at this time. Will continue with aggressive IV hydration at this time. General surgery Dr Singletary consulted. Exam Vital Signs Temp Pulse Resp BP Pulse Ox O2 Del Method 97.6 F 88 16 111/86 H 96 Room Air 08/26/24 08:00 08/26/24 08:00 08/26/24 08:00 08/26/24 08:00 08/26/24 08:00 08/26/24 08:00 Narrative Exam Physical Exam GENERAL: NAD, AAOx3 HEENT: Moist mucosa. Eyes open, symmetrical, & clear CARDIO: Heart RRR, no obvious murmurs PULM: No noted coughing/dyspnea CTA B/L, no R/W/R GI: Abdomen soft, nondistended, pain on palpation of the epigastric region. Bowel sounds appreciated SKIN/MSK/EXT: No wounds/rashes/edema/amputations, no pain on palpation. Pedal pulses present B/L NEURO: AAOx3, no focal neuro deficits, able to move all 4 extremities Objective Labs 08/26/24 07:09 08/26/24 07:09 Labs: Laboratory Results - last 24 hr 08/25/24 08/25/24 08/25/24 16:49 17:10 19:09 WBC 14.8 H RBC 5.96 H Hgb 16.9 H Hct 49.2 H MCV 83 MCH 28.4 MCHC 34.3 RDW Std Deviation 40.7 Plt Count 331 Neut % (Auto) 89 H Lymph % (Auto) 8 L [place] % (Auto) 3 Eos % (Auto) 0 Baso % (Auto) 0 Neut # (Auto) 13.1 H Lymph # (Auto) 1.1 [place] # (Auto) 0.5 Eos # (Auto) 0.0 Baso # (Auto) 0.0 Immature Gran # (Auto) 0.05 H Absolute Nucleated RBC 0.00 Immature Gran % 0 Nucleated RBC % 0 Sodium 141 Potassium 4.8 Chloride 106 Carbon Dioxide 25.1 Anion Gap 10 BUN 7 L Creatinine 0.8 Estim Creat Clear Calc 112.1 eGFR > 60 BUN/Creatinine Ratio 9 L Glucose [address] Glu mg/dL Hemoglobin A1c Calculated Osmolality 281 Lactic Acid 4.8 H* Calcium 10.5 Corrected Calcium 10.5 H Total Bilirubin 1.3 H AST 665 H* ALT 596 H* Alkaline Phosphatase 200 H Lactate Dehydrogenase Total Protein 8.2 Albumin 4.9 Globulin 3.3 Albumin/Globulin Ratio 1.5 Triglycerides 83 Cholesterol 154 LDL Cholesterol, Calc 88 HDL Cholesterol 49 Cholesterol/HDL Ratio 3.1 L Lipase 1634 H* Procalcitonin 0.20 Ur Collection Type Clean Catch Urine Color Yellow Urine Clarity Turbid A Urine pH 6.0 Ur Specific [place] 1.020 Urine Protein Trace Urine Glucose (UA) Negative Urine Ketones Negative Urine Blood Negative Urine Nitrite Negative Urine Bilirubin Negative Urine Urobilinogen (Auto) Negative Ur Leukocyte Esterase Positive Urine RBC 4 H Urine WBC 3 Ur Squamous Epith Cells 4 Urine Bacteria 3+ A Ur Culture Indicated? Yes Urine HCG, Qual Negative HIV 1&2 Antibody Rapid 08/25/24 08/26/24 22:46 07:09 WBC 10.9 RBC 4.75 Hgb 13.5 D Hct 39.7 MCV 84 MCH 28.4 MCHC 34.0 RDW Std Deviation 42.2 Plt Count 242 D Neut % (Auto) 73 Lymph % (Auto) 18 [place] % (Auto) 9 Eos % (Auto) 1 Baso % (Auto) 0 Neut # (Auto) 8.0 H Lymph # (Auto) 2.0 [place] # (Auto) 0.9 H Eos # (Auto) 0.1 Baso # (Auto) 0.0 Immature Gran # (Auto) 0.02 H Absolute Nucleated RBC 0.00 Immature Gran % 0 Nucleated RBC % 0 Sodium 142 Potassium 3.9 D Chloride 111 H Carbon Dioxide 23.3 Anion Gap 8 BUN 7 L Creatinine 0.7 Estim Creat Clear Calc 134.6 eGFR > 60 BUN/Creatinine Ratio 10 L Glucose [address] Glu mg/dL 94 Hemoglobin A1c 4.9 Calculated Osmolality 281 Lactic Acid 3.9 H Calcium 8.7 D Corrected Calcium 9.0 D Total Bilirubin 1.0 AST 170 H ALT 325 H Alkaline Phosphatase 142 H D Lactate Dehydrogenase 286 H Total Protein 6.0 Albumin 3.6 D Globulin 2.4 Albumin/Globulin Ratio 1.5 Triglycerides Cholesterol LDL Cholesterol, Calc HDL Cholesterol Cholesterol/HDL Ratio Lipase Procalcitonin Ur Collection Type Urine Color Urine Clarity Urine pH Ur Specific [place] Urine Protein Urine Glucose (UA) Urine Ketones Urine Blood Urine Nitrite Urine Bilirubin Urine Urobilinogen (Auto) Ur Leukocyte Esterase Urine RBC Urine WBC Ur Squamous Epith Cells Urine Bacteria Ur Culture Indicated? Urine HCG, Qual HIV 1&2 Antibody Rapid Non-Reactive Quality Measures Quality Measures none Assessment & Plan Assessment Current Active Medications: Generic Name Dose Route Start Last Admin Trade Name Freq PRN Reason Stop Dose Admin Acetaminophen 325 mg 08/26/24 06:05 Acetaminophen Tanya 325 Mg/10 Ml Udc PO 09/25/24 06:04 Q6HR PRN Pain Or Fever > 100 Albuterol/Ipratropium 3 ml 08/25/24 22:04 Albuterol/Ipratropium (Duoneb) Rt Tanya 3 Ml Nebu INH 09/24/24 22:03 Q4HR PRN SHORTNESS OF BREATH OR WHEEZE Enoxaparin Sodium 40 mg 08/26/24 09:00 08/26/24 09:10 Enoxaparin Sod Inj 40 Mg/0.4 Ml Syringe SC 09/09/24 08:59 40 mg QDAY ERINN Administration Ketorolac Tromethamine 30 mg 08/25/24 22:06 Ketorolac Inj 30 Mg/Ml Vial IVP 08/30/24 22:05 Q6HR PRN PAIN SCALE 4-10(Mod-Sev Morphine Sulfate 2 mg 08/25/24 22:06 Morphine Sulf Inj 10 Mg/Ml Vial IVP 08/30/24 22:05 Q4HR PRN BREAKTHROUGH PAIN Protocol Ondansetron HCl 4 mg 08/25/24 22:06 Ondansetron Inj 2 Mg/Ml Inj 2 Ml IV 09/24/24 22:05 Q6H PRN NAUSEA OR VOMITING Protocol Pantoprazole Sodium 40 mg 08/25/24 22:15 08/26/24 09:09 Pantoprazole Inj 40 Mg Vial IVP 09/24/24 22:14 40 mg QDAY ERINN Administration Plan 24-year-old female with no significant past medical history presenting today with a chief complaint of abdominal pain for the past 3 days. Patient will be admitted to observation for treatment and management of acute pancreatitis. #Acute pancreatitis #Cholelithiasis #Cholecystitis ruled out Patient presented with worsening epigastric abdominal pain associated with intractable vomiting. On exam patient is tender to palpation in the epigastric region Etiology: Gallstone, ethanol, hyperlipidemia, hep B, HIV MRCP significant for acute pancreatitis without pseudocyst or necrosis Gallbladder ultrasound revealed cholelithiasis, negative for cholecystitis. Fatty liver Lipase?1634 [place] criteria 3/3. [Abdominal pain, lipase 1634 and MRCP shows pancreatitis] BISAP score; 0, <1% mortality [place]?Imrie Pancreatitis score ; 0. Low risk for severe pancreatitis Lipid panel within normal limits no need for fenofibrate or statin at this time Patient received 500 NS bolus IV fluids Likely etiology gallstone pancreatitis ? N.p.o. for possible surgical intervention - Hepatitis panel, HIV 1 & 2 rapid ordered pending ? General surgery Dr Singletary consulted, appreciate recommendations ?On lactated Ringer's IV fluids at 150 cc/h ? Ketorolac 30 Mg IV Q6 hourly for pain 4?10 ? Morphine 2 Mg IV every 4 hourly for breakthrough pain ? No need for antibiotics as no sign of necrosis on MRCP and negative for cholecystitis. #Intractable nausea and vomiting #Lactic acidosis #Leukocytosis Patient had constant vomiting today with last episode around 2/3 PM. WBC 14.8 Elevated lactic acid and white cell most likely secondary to persistent vomiting. Lactic acid 4.8--> 3.9 ? Trend lactic acid every 6 hourly ? Maintenance IV fluids ? Ondansetron 4 Mg IV Q6 hourly as needed for nausea/vomiting #Transaminitis #Elevated T. bili #Metabolic dysfunction associated steatotic liver disease #Obesity Class 1 On admission T. bili 1.3, AST 665, ALT 596, ALP 200. Gallbladder ultrasound revealed cholelithiasis, negative for cholecystitis. Fatty liver BMI 30.9 - Monitor CMP ? General Surgery Dr Singletary consulted, appreciate recommendations ? Counseled patient on low-fat diet - Lifestyle modification for fatty liver #Asymptomatic bacteriuria Patient denies any dysuria, increased frequency or LUTS Urinalysis 3+ bacteria, leukocyte esterase positive. ? No need for antibiotics Case discussed with my attending Dr. Adrian Forrester MD PGY-1 Disposition: MedSurg Fluids: LR Feeding: Clear liquid diet advance as tolerated Thrombo prophylaxis: Lovenox Gastric Ulcer prophylaxis: Pantoprazole CODE STATUS: Full code Attending Provider Attestation/Addendum Yamileth Eduardo, DO, attest that I was physically present for the sloan portions of the service and evaluated the patient with the resident and I reviewed and discussed the case with the resident and agree with the resident's findings and plans of care as documented above Patient seen and evaluated this AM. Patient states her abdominal pain is 5 out of 10. LFTs and bili appears improved, suspect that patient passed gallstone overnight. Will consult surgery due to gallstone pancreatitis. She states that she was able to tolerate CLD this AM and denies any further episodes of N/V
--- NOTE | 2024-08-26 14:47 | PD.SURCONS ---
HPI Consult details Consult date: 08/26/24 Reason for consultation narrative: Gallstone pancreatitis History of present illness: 24-year-old female was admitted with worsening abdominal pain. She has 3-month history of intermittent abdominal pain. Her pain has been getting progressively worse for the past 3 days. Her pain is in the epigastric and right upper quadrant radiating to her back. She has had nausea and vomiting. She denies jaundice discoloration of urine or stool, fever or chills. Abdominal ultrasound revealed multiple gallstones, MRCP revealed cholelithiasis and acute pancreatitis. She was noted to elevation of liver enzymes are normalizing. She continues to have abdominal pain, however improved since admission. Review of Systems Constitutional Constitutional: Denies chills and Denies fever(s) Cardiovascular Cardiovascular: Denies chest pain Respiratory Respiratory: Denies cough Gastrointestinal Gastrointestinal: Reports abdominal pain, Reports nausea and Reports vomiting Hematologic/Lymphatic Hematologic/Lymphatic: Denies easy bleeding and Denies easy bruising Past Medical History Surgical History OTHER SURGICAL HX: Excision of thyroglossal duct cyst Social History SMOKING STATUS: Never smoker SUBSTANCE USE: does not use ALCOHOL: Never Meds Home Medications and Allergies Allergies Allergy/AdvReac Type Severity Reaction Status Date / Time Penicillins Allergy Hives Verified 05/12/24 09:25 Exam Vital Signs Temp Pulse Resp BP Pulse Ox O2 Del Method 97.6 F 88 15 113/77 99 Room Air 08/26/24 11:44 08/26/24 11:44 08/26/24 11:44 08/26/24 11:44 08/26/24 11:44 08/26/24 08:00 Constitutional Constitutional: no acute distress Routine Abdominal Exam Abdominal: Present soft, normoactive bowel sounds and tenderness (Minimal tenderness to deep palpation, no rebound tenderness or peritonitis at this time); Absent distended Results Results: Laboratory Laboratory results: results reviewed Results: Imaging Imaging narrative: Abdominal ultrasound and MRCP images reviewed, radiologist interpretation noted Assessment & Plan Problem List (1) Acute gallstone pancreatitis: Status: Acute Plan Will plan for laparoscopic possible open cholecystectomy. Risks include but not limited to infection, bleeding, injury to bowel, liver, stomach, bile duct, retained stone, bile leak, abdominal sepsis and or abdominal abscess, need for further procedure and or operation discussed with the patient and her parents. Benefits alternatives explained to them, all their questions answered, they agreed and consented to proceed with the operation.
--- NOTE | 2024-08-26 15:57 | PD.SUROPNT ---
Date of Procedure 08/26/24 Pre Op Diagnosis Gallstone pancreatitis Post Op Diagnosis Cholelithiasis with acute cholecystitis Procedure Laparoscopic cholecystectomy Findings Moderately distended gallbladder with gallstone, gallbladder wall thickening and significant pericholecystic edema Procedure Description Patient was brought into the operating room in supine position. After administration of general endotracheal anesthesia abdomen was prepped and draped in standard surgical manner. A Veress needle was inserted through the umbilicus and pneumoperitoneum was obtained up to 15 mmHg. The Veress needle was then removed, a 5 mm infraumbilical incision was made and the 5mm trocar was inserted. Laparoscopic camera was placed. Under direct visualization a laparoscopic camera a 10 mm trocar was placed in subxiphoid and two 5 mm trocars placed in right upper quadrant. The gallbladder was identified and was noted to be moderately distended with gallstones and significant pericholecystic edema. It was retracted cephalad and laterally. Dissection started near the infundibulum of gallbladder where cystic duct and gallbladder junction clearly identified. The cystic duct was circumferentially dissected off the peritoneum and surrounding inflammatory tissue. The critical view of safety was clearly demonstrated. Cystic duct was then divided between 2 endoclips proximally and one distally. The cystic artery was similarly dissected and divided. The gallbladder was then from the liver bed using electrocautery. The gallbladder was then placed inside an Endo Catch and removed from the abdomen utilizing subxiphoid trocar site. The area was copiously and thoroughly washed and irrigated, all the fluid was suctioned and the suction fluid returned clear. Hemostasis achieved using electrocautery. Endoclips noted be in place and intact without any bleeding or any leakage. Hemostasis was adequate and satisfactory. The subxiphoid trocar sites fascial defect was closed with 0 Vicryl using Endo Closure device. Instruments and trocars removed, pneumoperitoneum was evacuated and the incisions closed with 4-0 Monocryl in subcuticular fashion. Instrument needle and sponge counts were all reported to be correct X2. Patient tolerated the procedure well, was extubated, breathing spontaneously and without difficulty and was transferred to postanesthesia care in stable condition. Anesthesia GETA and local Pathology / specimen Other (Gallbladder and contents) Estimated Blood Loss 25 Condition Stable Disposition PACU Surgeon Gary Singletary MD Surgical Staff Operation Date: 08/26/24 14:45 Case Staff PHYSICAL THERAPY MANAGER: Pepe Corea RNadult care manager: Amelia Ma
--- NOTE | 2024-08-26 16:00 | SUR.PHASEI ---
Pt. arrived to recovery via gurney, eyes closed, oral airway in place, VSS, lung sounds clear with rhonchi noted on inspiration and expiration, pt. receiving 8 liters 02 via oxymask, lap sites x4, dermabond intact, no active bleeding or redness noted, report received from Garth JAQUEZ and Av CORDOBA.
--- NOTE | 2024-08-26 16:20 | SUR.PHASEI ---
Pt. sitting up tolerating sips of 7-up.
[2024-08-26] MEDS: ACETAMINOPHEN IVPB 1,000 MG/100 ML VIAL 250 MG IV (16:37)
--- NOTE | 2024-08-26 16:41 | SUR.PHASEI ---
Called and gave report on pt. s/p surgery to Estefany JAQUEZ on M/S unit.
--- NOTE | 2024-08-26 17:00 | SUR.PHASEI ---
Pt. transferred to room 352 via gurney, VSS, no c/o pain or nausea at this time, lap sites x4 CDI, IV flushed and patent. Estefany JAQUEZ assumed care of pt.
[2024-08-26] MEDS: DOCUSATE SOD 100 MG CAPSULE PO (20:16)
[2024-08-26 22:08] LABS: Hepatitis A Antibody IgM Non Reactive (Non React); Hepatitis B Core Antibody IgM Non Reactive (Non React); Hepatitis B Surface Antigen Non Reactive (Non React); Hepatitis C Antibody Non Reactive (Non React)
[2024-08-27] VITALS (7 sets, daily range): BP systolic 121–132; BP diastolic 66–83; PULSE 68–94; RESP 15–100; TEMP 36.2–37.2; O2SAT 95–100
[2024-08-27 06:18] LABS: Basophils % (Auto) 0 % (0-2.5); Eosinophils % (Auto) 0 % (0-10); Hemoglobin 13.1 g/dL (12.0-16.0); Immature Granulocytes % (Auto) 0 % (0-0); Immature Granulocytes Auto 0.04 Thou/mm3 (0.00-0.00); Lymphocytes # (Auto) 0.9 Thou/mm3 (1.0-4.8); Lymphocytes % (Auto) 7 % (10-50); Mean Corpuscular HGB Conc 33.6 g/dl (31.0-37.0); Mean Corpuscular Volume 83 fL (80-100); Monocytes # (Auto) 0.3 Thou/mm3 (0.0-0.8); Monocytes % (Auto) 3 % (0-12); Neutrophils # (Auto) 11.8 Thou/mm3 (1.8-7.7); Neutrophils % (Auto) 90 % (37-80); Nucleated Red Blood Cell % 0 /100 WBC (0); Platelet Count 234 Thou/mm3 (140-440); RDW Standard Deviation 40.9 fL (36.4-46.3); Red Blood Count 4.68 Miln/mm3 (4.00-5.20)
[2024-08-27 06:45] LABS: Alanine Aminotransferase 245 U/L (10-49); Albumin/Globulin Ratio 1.5 (1.2-2.2); Alkaline Phosphatase 139 U/L (46-116); Anion Gap 12 (7-16); Aspartate Amino Transferase 83 U/L (0-34); BUN/Creatinine Ratio 12 Ratio (12-20); Bilirubin,Total 0.5 mg/dL (0.3-1.2); Blood Urea Nitrogen 7 mg/dL (9-23); Calcium 9.8 mg/dL (8.3-10.6); Calcium (Corrected) 9.8 mg/dL (8.5-10.1); Carbon Dioxide 22.4 mMol/L (20.0-31.0); Chloride 109 mMol/L (98-107); Creatinine (Component) 0.6 mg/dL (0.6-1.3); Globulin 2.7 gm/dL (2.3-3.5); Glucose 100 mg/dL (74-106); Osmolality,Calculated 282 (275-295); Potassium 3.7 mMol/L (3.4-5.1); Sodium 143 mMol/L (136-145); Total Protein 6.7 gm/dL (5.7-8.2); eGFR > 60 See Note
[2024-08-27] MEDS: PANTOPRAZOLE INJ 40 MG VIAL IVP (08:46)
[2024-08-27] MEDS: DOCUSATE SOD 100 MG CAPSULE PO (08:47)
[2024-08-27] MEDS: ALBUTEROL/IPRATROPIUM (Duoneb) RT SOL 3 ML NEBU INH (10:45)
--- NOTE | 2024-08-27 11:17 | PC.SS ---
Rounding: If tolerates diet, poss DC
--- NOTE | 2024-08-27 16:01 | ESDS_ITS ---
<Statement entered by Yamileth Campbell DO - 08/28/24 07:57> I, Yamileth Campbell DO, attest that I was physically present for the sloan portions of the service and evaluated the patient with the resident and I reviewed and discussed the case with the resident and agree with the resident's findings and plans of care as documented above <Statement entered by Jazmyn Spangler MD - 08/27/24 18:33> I discussed with and supervised the purchasing intern physician who took care of this patient. I personally saw and examined the patient and discussed the assessment and plan with the entire medicine team, including my attending , I agree with most of the assessment and plan as documented below Jazmyn Spangler M.D. PGY-2 Disclaimer: Despite multiple revisions, due to the dictation software being used, the document bellow may not be free of grammatical errors including phonetic/typographic errors. However, this does not deter from our commitment to providing health care in the patient's best interest in mind. Planned Discharge Date 08/27/24 DS: Providers Provider Date of admission: 08/26/24 10:37 Primary care physician: Physician No Primary/Family Admitting Provider: Govind Stover MD Attending Provider on Admission: Yamileth Campbell DO Consults: 08/26/24 11:41 Consult to General Surgery Routine Comment: Consulting Provider: Gary Singletary Attending Provider on DC: Yamileth Campbell DO Discharging Provider: Librado Forrester MD Anticipated date of discharge: 08/27/24 DS: Diagnosis Problem List Completed Was Problem List Reviewed/Reconciled?: Yes Hospital Course Hospital Course Hospital course: 24-year-old female with no significant past medical history presenting 08/25/2024 with a chief complaint of abdominal pain for the past 3 days. She described the pain as epigastric, 9 on 10 in severity, no radiation, associated with vomiting, diarrhea and nausea, initially episodic but progressed to being constant. Her vomiting was initially 1-2 episodes per day of food contents. Described as mostly liquids, denied any bile, hematemesis or coffee-ground emesis. Patient was admitted for management of acute pancreatitis. During hospital stay patient was managed with aggressive IV hydration, bowel rest/clear liquid diet advancing as tolerated. Patient denies any alcohol history and lipid panel was found to be normal however on gallbladder ultrasound was found with gallstones. Most likely etiology of acute pancreatitis seems to be gallstone pancreatitis. General surgeon Dr. Singletary was consulted and recommended laparoscopic cholecystectomy. Patient underwent procedure with no complications. Patient tolerated diet and was passing gas at the time of discharge. At this time patient is medically stable for discharge. All questions were answered and recommendation were given to come to the ED anytime if she is not feeling well or symptoms become worse. Follow-up low-fat diet. Follow-up with primary care physician within 1 week of discharge. Please follow-up with general surgery Dr Singletary within 2 weeks of discharge. Should any symptoms recur or worsen patient is instructed to return to the ED. Take Tylenol 325 mg p.o. 4 times daily as needed for pain 1?3. Trout 5-325 mg p.o. every 6 hours as needed for pain 6?10. Problem list: # Gallstone pancreatitis #Cholelithiasis #Cholecystitis ruled out #Intractable nausea and vomiting #Lactic acidosis-resolved #Leukocytosis #Transaminitis #Elevated T. bili #Metabolic dysfunction associated steatotic liver disease #Obesity Class 1 #Asymptomatic bacteriuria Case discussed with my senior Dr. Spangler PGY-[address] Adrian Forrester MD PGY-1 Status at Discharge Functional status at discharge: independent ambulation Overall status at discharge: patient is back to baseline Time Spent with Patient Time attestation: Total time spent providing and/or coordinating discharge services: Time spent: Greater than 30 minutes Exam Vital Signs Temp Pulse Resp BP Pulse Ox O2 Del Method O2 Flow Rate 98.9 F 94 18 122/83 100 Room Air 4 08/27/24 11:50 08/27/24 11:50 08/27/24 11:50 08/27/24 11:50 08/27/24 11:50 08/27/24 11:50 08/26/24 16:10 Narrative Exam Physical Exam GENERAL: NAD, AAOx3 HEENT: Moist mucosa. Eyes open, symmetrical, & clear CARDIO: Heart RRR, no obvious murmurs PULM: No noted coughing/dyspnea CTA B/L, no R/W/R GI: Abdomen soft, nondistended, trocar sites clean and dry. Bowel sounds appreciated SKIN/MSK/EXT: No wounds/rashes/edema/amputations, no pain on palpation. Pedal pulses present B/L NEURO: AAOx3, no focal neuro deficits, able to move all 4 extremities Discharge Plan Plan Patient Disposition: HOME (Self Care) Patient condition on transfer: Stable Care Plan Goals: All questions were answered and recommendation were given to come to the ED anytime if she is not feeling well or symptoms become worse Follow-up low-fat diet Follow-up with primary care physician within 1 week of discharge Please follow-up with general surgery Dr Singletary within 2 weeks of discharge. Should any symptoms recur or worsen patient is instructed to return to the ED Take Tylenol 325 mg p.o. 4 times daily as needed for pain 1?3 Trout 5-325 mg p.o. every 6 hours as needed for pain 6?10 Prescriptions/Referrals Prescriptions/Med Rec: New docusate sodium 100 mg Capsule 100 mg PO BID PRN (Reason: constipation) 15 Days Qty: 30 0RF hydrocodone-acetaminophen 5-325 mg tablet 1 tab PO Q6H MDD 4 tablets PRN (Reason: pain) 3 Days Qty: 10 0RF acetaminophen [Tylenol] 325 mg tablet 325 mg PO QID PRN (Reason: fever) 3 Days Qty: 20 0RF Rx Instructions: take 1 tablet QID as needed for pain 1-3 Discontinued loperamide [Imodium A-D] 2 mg capsule 2 mg PO Q6H PRN (Reason: loose stool) Qty: 14 0RF ibuprofen 600 mg tablet 600 mg PO Q6H Qty: 30 0RF ondansetron 4 mg tablet,disintegrating 4 mg PO Q8H PRN (Reason: nausea and vomiting) Qty: 10 0RF Referrals: No Primary/Family,Physician [Primary Care Provider] - Patient/Caregiver Discharge Instructions Meds to Beds: No Discharge Activity: activity as tolerated Education Materials: After Gallbladder Surgery, Pancreatitis Acute Dc, Preventing Surgical Site Infections Print Language: Korean Activity Restrictions/Additional Instructions: May shower. Avoid lifting, straining, pulling or pushing for 4 weeks. May take over the counter laxatives if no bowel movement in 2 days. Follow up with Dr. Singletary in 2 weeks, call [phone] for an appointment. Continue low-fat diet for 1 week, then may advance diet as tolerated. Stand Alone Forms: [employer] Award Info., Patient Portal Info Letter Discharge Order Discharge Orders: Discharge (Routine); Ordered 08/27/24 Ordered By: Melissa Nelson Quality Discharge Quality Measures VTE prophylaxis
== END 2024-08-27 17:27 | disposition home or self-care (01) | DRG 417 ==
LOC: SERX 21:51 → SERHOLD 08-26 00:10 → S3NX 08-26 12:18
PROVIDERS: Nurse Practitioner Family; Nurse Practitioner Primary Care; Student in an Organized Health Care Education/Training Program; Surgery; Admitting Provider Internal Medicine; Emergency Provider Emergency Medicine; Visit Provider Internal Medicine
PROC: 0FT44ZZ Resection of Gallbladder, Percutaneous Endoscopic Approach (ICD-10-PCS; CPT 47562; principal; 2024-08-26 14:30)
DX: K80.20 Calculus of gallbladder without cholecystitis without obstruction (principal); K85.10 Biliary acute pancreatitis without necrosis or infection; E87.20 Acidosis, unspecified; E66.811 Obesity, class 1; E78.5 Hyperlipidemia, unspecified; K76.0 Fatty (change of) liver, not elsewhere classified; Z68.30 Body mass index [BMI] 30.0-30.9, adult; R82.71 Bacteriuria; Z88.0 Allergy status to penicillin; Z56.0 Unemployment, unspecified
CPT/HCPCS: 36415; 76705; 80053; 80061; 80074; 81001; 81025; 83036; 83605; 83615; 83690; 84145; 85025; 86703; 87040; 87086; 94640; 96361; 96365; 96375; 99285; A4217; A4649; A9270; G0378; J0131; J0690; J0694; J1100; J1650; J1885; J2250; J2270; J2405; J2470; J2704; J3010; J3490; J7030; J7040; J7050; J7120; S8037; 74181